=== PATIENT | female | born 1970 | race Two or more races ===

== ENCOUNTER 2018-01-27 13:47 | Emergency (ER) | payer SELFPAY ==
[~2018-01-27] VITALS: Ht 172.7 cm; Wt 68.0 kg
[2018-01-27 13:47] VITALS: BP 152/86
--- NOTE | 2018-01-27 14:32 | NUR ---
PATIENT AMBULATING IN ER WITH STEADY GAIT, A/OX 4. BREATHING EVEN AND UNLABORED. NO S/S OF WITHDRAWALS. PATIENT CLINICALLY STABLE FOR DISCHARGE PER DR. ÁLVAREZ. [facility] MADE AWARE, STAFF MEMBER WILL SECOND CRUSHER PATIENT FOR DISCHARGE.
--- NOTE | 2018-01-27 14:45 | NUR ---
PT PICKED UP BY STAFF MEMBER FROM REHAB. [id number]. AMBULATORY WITH STEADY GAIT. Patient discharged to home in stable condition. Written and verbal after care instructions given. Patient verbalizes understanding of instruction.
== END 2018-01-27 15:00 | disposition home or self-care (01) ==
LOC: ER 13:49
DX: F10.129 Alcohol abuse with intoxication, unspecified (principal)
CPT/HCPCS: A4606; Z7610

== ENCOUNTER 2018-12-10 17:51 | Emergency (ER) | payer BC ==
[~2018-12-10] VITALS: Ht 172.7 cm; Wt 65.8 kg
[2018-12-10] MEDS ORDERED: IV NS 0.9% 1,000 ML BAG IV ONE (18:30)
[2018-12-10] MEDS ORDERED: CHLORDIAZEPOXIDE HCL 25 MG CAPSULE ONE (18:53)
[2018-12-10] MEDS ORDERED: CHLORDIAZEPOXIDE HCL 25 MG CAPSULE PO ONE (19:00)
[2018-12-10 20:03] VITALS: BP 149/85
--- NOTE | 2018-12-10 20:04 | NUR ---
PT [facility]; PT DRANK ETOH REPORTS SZ WHEN DRINKING; PT AAOX4, PT ON MONITOR, VSS, NAD NOTED, PENDING ER PROVIDER YASMINAL
--- NOTE | 2018-12-10 20:05 | NUR ---
Patient discharged to home in stable condition. Written and verbal after care instructions given. Patient verbalizes understanding of instruction. IV removed. Catheter intact and site benign. Pressure and 4x4 applied to site. No bleeding noted.
== END 2018-12-10 20:06 | disposition home or self-care (01) ==
LOC: EDBD 17:58 → ER 17:58
DX: F10.129 Alcohol abuse with intoxication, unspecified (principal); Y90.9 Presence of alcohol in blood, level not specified
CPT/HCPCS: J7030